=== PATIENT | female | born 1955 ===

== ENCOUNTER 2017-06-21 21:36 | Emergency (ER) | payer OTHER ==
[2017-06-21 21:49] VITALS: BP 132/85; PULSE 89; RESP 20; TEMP 98.2; O2SAT 99
[2017-06-21] MEDS ORDERED: Albuterol 0.083% Inhal Sol (2.5 mg/3 mL) UD ONE (23:35)
[2017-06-21] MEDS ORDERED: Promethazine/Cod 6.25mg-10mg/5ml Syr UD PO STA (23:36)
[2017-06-22] MEDS: Albuterol 0.083% Inhal Sol (2.5 mg/3 mL) UD INH SCH (00:12)
[2017-06-22] MEDS ORDERED: Promethazine/Cod 6.25mg-10mg/5ml Syr UD ONE (00:16)
--- NOTE | 2017-06-22 01:06 | C.PDOC ---
History Of Present Illness 61 year old female presents to the ER with a complaint of body aches, headache, and cough for the past 4 days. Patient has been taking theraflu and tylenol cough/sinus, however, today felt some chest tightness which prompted visit. Denies fever, sick contact, or recent travel. Time Seen by Provider: 06/21/17 22:59 Chief Complaint (Nursing): Flu-like Symptoms History Per: Patient History/Exam Limitations: no limitations Onset/Duration Of Symptoms: Days Current Symptoms Are (Timing): Still Present Location Of Pain: Diffuse Myalgias, Headache Sick Contacts (Context): None Associated Symptoms: Cough, Myalgias, Other (Headache). denies: Fever Ear Symptoms: Bilateral: None Recent travel outside of the [place]: No Past Medical History Reviewed: Historical Data, Nursing Documentation, Vital Signs Vital Signs: Last Vital Signs Temp 98.2 F 06/21/17 21:42 Pulse 89 06/21/17 21:42 Resp 20 06/21/17 21:42 BP 132/85 06/21/17 21:42 Pulse Ox 99 06/22/17 01:08 - Medical History PMH: Anxiety, Arthritis, Depression Surgical History: (x 3) - [facility] GROUP PSYCHOTHERAPY (01/24/16) INDIVID PSYCHOTHERAP NEC (07/27/14) INDIVIDUAL PSYCHOTHERAPY, SUPPORTIVE (01/24/16) OTHER GROUP THERAPY (07/27/14) Family History: States: Unknown Family Hx - Social History Hx Alcohol Use: No Hx Substance Use: No - Immunization History Hx Tetanus Toxoid Vaccination: No Hx Influenza Vaccination: No Hx Pneumococcal Vaccination: No Review Of Systems Constitutional: Negative for: Fever, Chills Respiratory: Positive for: Cough, Other (Chest tightness) Musculoskeletal: Positive for: Other (Body aches) Neurological: Positive for: Headache Physical Exam - Physical Exam Appears: Non-toxic Skin: Normal Color, Warm, Dry Head: Atraumatic, Normacephalic Eye(s): bilateral: Normal Inspection Ear(s): Bilateral: Normal Nose: Normal Oral Mucosa: Moist Throat: Normal, No Erythema, No Exudate Neck: Normal, Supple Chest: Symmetrical, No Tenderness Cardiovascular: Rhythm Regular Respiratory: No Rales, Rhonchi, Wheezing (Minimal expiratory) Neurological/Psych: Oriented x3, Normal Speech ED Course And Treatment O2 Sat by Pulse Oximetry: 99 (Room air) Pulse Ox Interpretation: Normal - Radiology CXR: Interpreted by Me, Viewed By Me CXR Interpretation: Yes: No Acute Disease. No: Infiltrates Progress Note: EKG and CXR ordered. Albuterol nebulizer, phenergan/codiene, and prednisone administered. On reevaluation, patient reports improvement of symptoms, she is resting comfortably in the ER in no respiratory distress with clear breath sounds. Will discharge home with Rx and instructions to follow up with PMD for further evaluation or return if symptoms worsen. Disposition Counseled Patient/Family Regarding: Diagnosis, Need For Followup, Rx Given - Disposition Referrals: Sherif Joyner MD [Staff Provider] - Disposition: HOME/ ROUTINE Disposition Time: 01:03 Condition: STABLE Additional Instructions: Increase PO fluids Take meds as directed Return to ER if worse Prescriptions: Benzonatate [Tessalon Perles] 100 mg PO TID #20 sgl Cetirizine HCl [Zyrtec] 10 mg PO DAILY #20 capsule Ibuprofen [Motrin] 600 mg PO Q6H #20 tab Instructions: Viral Syndrome (ED) Forms: [employer] ([employer]) ([place]), Work Excuse Print Language: BOTSWANAN - Clinical Impression Clinical Impression: Upper respiratory infection, Influenza-like illness - 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 - Scribe Statement The provider has reviewed the documentation as recorded by the Scribe Rambo Salazar All medical record entries made by the Scribe were at my direction and personally dictated by me. I have reviewed the chart and agree that the record accurately reflects my personal performance of the history, physical exam, medical decision making, and the department course for this patient. I have also personally directed, reviewed, and agree with the discharge instructions and disposition.
--- NOTE | 2017-06-22 08:28 | RAD ---
HISTORY: chest congestion SOB, COMPARISON: No prior. TECHNIQUE: Chest PA and lateral FINDINGS: LUNGS: Increased/ coarse interstitial markings with scattered peribronchial cuffing changes. Rule out sequela of reactive/ inflammatory airway disease or viral illness. PLEURA: No significant pleural effusion identified. No pneumothorax apparent. CARDIOVASCULAR: Normal. OSSEOUS STRUCTURES: No significant abnormalities. VISUALIZED UPPER ABDOMEN: Normal. OTHER FINDINGS: None. IMPRESSION: Increased/ coarse interstitial markings with scattered peribronchial cuffing changes. Rule out sequela of reactive/ inflammatory airway disease or viral illness.
--- NOTE | 2017-06-23 12:29 | CARD ---
APPROVED REPORT EKG Measurement Heart [id number] <Conclusion> Normal sinus rhythm Normal ECG
== END 2017-06-22 01:10 | disposition home or self-care (01) ==
LOC: C.ER 21:36
DX: J11.1 Influenza due to unidentified influenza virus with other respiratory manifestations (principal)